=== PATIENT | male | born 1935 | race Caucasian/White ===

== ENCOUNTER 2016-10-12 09:41 | Inpatient (IN) | payer OTHER ==
[~2016-10-12] VITALS: Ht 175.3 cm; Wt 83.0 kg
--- NOTE | ~2016-10-12 | D ---
[facility] [place] [address] DISCHARGE SUMMARY Name: BRENDA STRANGE Room #: 208-P [facility] IN M.R.#: [id number] Admission: 10/12/16 Attend Phys: Lydia Neely MD Discharge: 10/14/16 Date of : 39 Report #: [id number] THIS REPORT FOR: //name// CC: MARYA Neely DATE OF SERVICE: 10/14/2016 HISTORY OF PRESENT ILLNESS: The patient is a 81-year-old man with history of coronary artery disease, who came to the hospital with chest pain. Please refer to the admission H and P for details. In brief, the patient did not have evidence of acute coronary syndrome on admission. HOSPITALIZATION COURSE: The patient was hospitalized. Wet Mixer was consulted. The patient's clinical presentation was consistent with angina. Given his medical history, the patient was scheduled for cardiac catheterization, that was performed on 10/13/2016. The patient was found to have RCA stenosis, and he had RCA stent. After procedure, chest pain resolved, and patient felt much better. The patient remained hemodynamically stable. At the time of the discharge, the patient's condition is acceptable, he is completely asymptomatic. He will be discharged home with close outpatient followup. DISCHARGE DIAGNOSES: 1. Chest pain, unstable angina. Status post cardiac catheterization on 10/13/2016, and RCA stent placement. Chest pain, resolved. 2. Diabetes mellitus type 2. 3. Hypertension. Amlodipine and metoprolol were continued, Diovan, and hydrochlorothiazide are held. 4. Chronic kidney disease stage III. Current creatinine is 1.2. DISCHARGE MEDICATIONS: Amlodipine 2.5 mg a day, aspirin 81 mg a day, Lipitor 40 mg a day, Plavix 75 mg a day, glyburide 2.5 mg in the morning, metformin 500 mg b.i.d., and metoprolol XL 25 mg a day. DISPOSITION: The patient is discharged home. FOLLOWUP PLAN: 1. Follow up with the primary care physician in 1-2 weeks. 2. Follow up with the typewriter assembler as advised. <ELECTRONICALLY SIGNED> By: Lydia Neely MD 10/24/16 1742 [id number] [id number] Lydia Neely MD /nt
--- NOTE | ~2016-10-12 | EKG ---
[address] [place] [employer] [place] [address] ELECTROCARDIOGRAM REPORT Name: BRENDA STRANGE Room #: 208-P ADM IN M.R.#: [id number] Admission: 10/12/16 Attend Phys: Pasquale Lan MD Discharge: Date of : 39 Report #: [id number] THIS REPORT FOR: //name// [facility] ED Test Date: 2016-10-12 Test Time: 09:41:45 Pat Name: BRENDA STRANGE Department: Room: 208 Gender: M Rebar Fabricator: Oumar SOLIS : [id number] Requested By: Chito Cormier Order Number: [id number] MD: Sancho Turpin Measurements Intervals [place] Rate: 64 P: 31 [place]: 197 QRS: 13 QRSD: 117 T: 36 QT: 410 QTc: 423 Interpretive Statements Sinus rhythm Nonspecific ST segment abnormality No previous ECG available for comparison Electronically Signed On 10-13-2016 6:51:53 CDT by Sancho Turpin [email or web address] <ELECTRONICALLY SIGNED> By: Sancho Turpin MD, [facility] 10/13/16 0651 0941 0941 Sancho Turpin MD, FACC /EPI
--- NOTE | ~2016-10-12 | CATHLAB ---
[facility] [address] [place] [address] INVASIVE PROCEDURE REPORT Name: BRENDA STRANGE Room #: 208-P [facility] IN M.R.#: [id number] Admission: 10/12/16 Attend Phys: Lydia Neely Discharge: 10/14/16 Date of : 39 Date of Service: 10/13/16 0934 Report #: [id number] THIS REPORT FOR: //name// CC: MARYA Neely PROCEDURES: Left ventriculography, coronary angiography, PTCA stent of the RCA drug-eluting, and abdominal aortography. DESCRIPTION OF PROCEDURE: The patient brought to the catheterization lab having recurrent chest pain or unstable angina. The right groin was prepped and draped in sterile manner. 1% Xylocaine was used for local anesthesia. Versed was given for conscious sedation. A 6-Wolof sheath in the right femoral artery. Straight pigtail catheter performed a single MOE ventriculogram and AP aortogram. LV function was lower limits of normal. Abdominal aorta mildly ectatic but no significant aneurysm. Renal arteries are mildly diseased, single bilateral FL4 for left coronary system, although FL5 would fit better. The left main was relatively well preserved previously, proximal LAD stent with 3.0 x 13 Cypher placed in 2006. This had 40% in-stent restenosis proximal, distal and in-stent, although did not require intervention. Mild disease distally. Circum OM was nondominant with moderate disease in the ramus and two OM branches 40-50% calcified and then a large dominant right with the JR4 subtotalled mid vessel lesion filling the large PDA and LELE. 30% more proximal lesion. I utilized a 3-0 balloon ROBERTS guide 6-Wolof 0.014 Luge and a 3.0 balloon initially to dilate. I then attempted to deliver a 3.5 x 15 Resolute drug-eluting stent, I had difficulty, I had to jennifer wire again and recede guide multiple times, eventually was able to the stent across the lesion with the jennifer wire and receding the guide multiple times and then able to deliver this stent initially to 16 atmospheres and 18 atmospheres, which is approaching 4.0 mm in size with 0% residual and UDAY grade 3 flow was well opposed. No dissection or thrombus formation. Resolution of EKG and chest pain. Mynx closure was utilized. The patient tolerated this well. HEMODYNAMICS: Aortic 170/76. LV 156/12. IMPRESSION: 1. Successful percutaneous transluminal coronary angioplasty stent of the mid right coronary artery, subtotal large dominant vessel with a 3.25 x 12 Resolute up to 3.5 x 15 Resolute up to 4.0 mm in size, UDAY grade 3 flow. 2. Left main, free of disease, mildly calcified. 3. Proximal calcification in the LAD 30-40% and then in-stent LAD site for stent placed in 2006, 40% in-stent, mild disease distally. 4. Diagonal branch also moderately diseased. 5. Circum OM nondominant, moderate 40% and 50% irregularities. 6. Normal left ventricular size with EF near normal. 7. Abdominal aorta is intact without aneurysm and single renal arteries that are patent, mildly diseased. [facility] [address] [place] [address] INVASIVE PROCEDURE REPORT Name: BRENDA STRANGE Room #: 208-P [facility] IN M.R.#: [id number] Admission: 10/12/16 Attend Phys: Lydia Neely Discharge: 10/14/16 Date of : 39 Date of Service: 10/13/1634 Report #: [id number] RECOMMENDATIONS: Continue aggressive risk factor modification, dual antiplatelet therapy times 6 months. The patient utilized heparin, Integrilin boluses and will get p.o. Plavix load. Stable and pain free upon transfer back to CCU. <ELECTRONICALLY SIGNED> By: Luis Rowe MD, FACC 10/18/16 0844 0934 51 Luis Rowe MD, FACC /nt
[2016-10-12 09:42] VITALS: BP 152/79
[2016-10-12] MEDS ORDERED: METFORMIN HCL500 MG PO (09:51)
[2016-10-12] MEDS ORDERED: TOPROL XL25 MG PO (09:51)
[2016-10-12] MEDS ORDERED: ASPIR 8181 M1 PO (09:52)
[2016-10-12] MEDS ORDERED: GLYBURIDE 2.52.5 MG PO (09:52)
[2016-10-12] MEDS ORDERED: NORVASC2.5 MG PO (09:52)
[2016-10-12] MEDS ORDERED: HYDROCHLOROTH12.5 M1 PO (09:53)
[2016-10-12 09:57] LABS: ABSOLUTE NEUTROPHILS 4.5 thou/uL (1.4-8.2); BASOPHILS 0.7 % (0.0-2.0); EOSINOPHILS 4.6 % (0.0-3.0); HEMATOCRIT 32.5 % (42.0-52.0); HEMOGLOBIN 11.2 gm/dL (14.0-18.0); MCH 31.8 pg (26.0-34.0); MCHC 34.6 g/dL (28.0-37.0); MONOCYTES 9.3 % (1.0-8.0); PLATELET COUNT 193 thou/uL (150-400); POLYS 66.4 % (36.0-66.0); RBC 3.53 mil/uL (4.50-6.00); RDW 13.3 % (10.5-14.5); WBC 6.8 thou/uL (4.0-11.0)
[2016-10-12 09:58] LABS: MANUAL DIFF NO
[2016-10-12 10:07] LABS: ANION GAP 8 mmol/L (7-16); BUN 19 mg/dL (7-18); CALCIUM 8.7 mg/dL (8.5-10.1); CHLORIDE 101 mmol/L (98-107); CO2 28 mmol/L (21-32); CREATININE 1.5 mg/dL (0.7-1.3); GLUCOSE 260 mg/dL (74-106); POTASSIUM 4.2 mmol/L (3.5-5.1); SODIUM 137 mmol/L (136-145)
[2016-10-12 10:18] LABS: ALBUMIN 3.4 g/dL (3.4-5.0); ALKALINE PHOSPHATASE 77 U/L (46-116); DIRECT BILIRUBIN < 0.1 mg/dL (<0.1-0.3); NT-PRO BRAIN NAT PEPTIDE 249 pg/mL (<300); SGOT 20 U/L (15-37); SGPT 24 U/L (30-65); TOTAL BILIRUBIN 0.3 mg/dL (<0.1-1.0); TOTAL PROTEIN 6.7 g/dL (6.4-8.2); TROPONIN-I < 0.04 ng/mL (<0.04-0.07)
[2016-10-12 12:15] VITALS: BP 132/86
[2016-10-12 16:07] VITALS: BP 162/85
[2016-10-12 20:00] VITALS: BP 161/74
[2016-10-12 23:56] VITALS: BP 142/64
[2016-10-13] VITALS (11 sets, daily range): BP systolic 122–154; BP diastolic 61–85
[2016-10-13 03:41] LABS: ALBUMIN 3.3 g/dL (3.4-5.0); CALCIUM 8.7 mg/dL (8.5-10.1); CREATININE 1.4 mg/dL (0.7-1.3); POTASSIUM 3.9 mmol/L (3.5-5.1); TOTAL BILIRUBIN 0.2 mg/dL (<0.1-1.0); TOTAL PROTEIN 6.3 g/dL (6.4-8.2)
[2016-10-14] VITALS (8 sets, daily range): BP systolic 116–129; BP diastolic 53–62
[2016-10-14 03:55] LABS: ABSOLUTE NEUTROPHILS 5.4 thou/uL (1.4-8.2); BASOPHILS 0.4 % (0.0-2.0); EOSINOPHILS 3.6 % (0.0-3.0); HEMATOCRIT 30.5 % (42.0-52.0); HEMOGLOBIN 10.6 gm/dL (14.0-18.0); LYMPHOCYTES 14.1 % (24.0-44.0); MCH 32.2 pg (26.0-34.0); MCHC 34.8 g/dL (28.0-37.0); MCV 92.4 fL (80.0-100.0); MONOCYTES 10.3 % (1.0-8.0); PLATELET COUNT 170 thou/uL (150-400); POLYS 71.6 % (36.0-66.0); RDW 13.2 % (10.5-14.5); WBC 7.6 thou/uL (4.0-11.0)
[2016-10-14 03:58] LABS: MANUAL DIFF NO
[2016-10-14 04:04] LABS: CALCIUM 8.4 mg/dL (8.5-10.1); CREATININE 1.3 mg/dL (0.7-1.3); POTASSIUM 4.5 mmol/L (3.5-5.1)
[2016-10-14] MEDS ORDERED: PLAVIX 75 MG TA75 M1 PO (08:27)
[2016-10-14] MEDS ORDERED: ATORVASTATIN CA40 MG PO (08:27)
[2016-10-14] MEDS ORDERED: ASPIRIN325 PO (08:27)
== END 2016-10-14 10:46 | disposition home or self-care (01) | DRG 247 ==
LOC: ER 09:41 → EROBS 11:02 → 2N 11:02
PROVIDERS: Family Medicine; Internal Medicine Endocrinology, Diabetes & Metabolism; Physician Assistant
PROC: B4101ZZ Fluoroscopy of Abdominal Aorta using Low Osmolar Contrast (ICD-10-PCS; principal; 2016-10-13)
PROC: 027034Z Dilation of Coronary Artery, One Artery with Drug-eluting Intraluminal Device, Percutaneous Approach (ICD-10-PCS; principal; 2016-10-13)
PROC: 4A023N7 Measurement of Cardiac Sampling and Pressure, Left Heart, Percutaneous Approach (ICD-10-PCS; principal; 2016-10-13)
PROC: B2151ZZ Fluoroscopy of Left Heart using Low Osmolar Contrast (ICD-10-PCS; principal; 2016-10-13)
PROC: B2111ZZ Fluoroscopy of Multiple Coronary Arteries using Low Osmolar Contrast (ICD-10-PCS; principal; 2016-10-13)
DX: I25.110 Atherosclerotic heart disease of native coronary artery with unstable angina pectoris (principal); N17.9 Acute kidney failure, unspecified; I13.0 Hypertensive heart and chronic kidney disease with heart failure and stage 1 through stage 4 chronic kidney disease, or unspecified chronic kidney disease; R07.9 Chest pain, unspecified; E78.5 Hyperlipidemia, unspecified; I48.91 Unspecified atrial fibrillation; E11.22 Type 2 diabetes mellitus with diabetic chronic kidney disease; N18.3 Chronic kidney disease, stage 3 (moderate); I50.9 Heart failure, unspecified; Z79.82 Long term (current) use of aspirin; Z79.899 Other long term (current) drug therapy; Z82.49 Family history of ischemic heart disease and other diseases of the circulatory system
CPT/HCPCS: 10081